=== PATIENT | male | born 1995 | race American Indian/Alaskan Native ===

== ENCOUNTER 2016-10-07 19:25 | Emergency (ER) | payer OTHER ==
[2016-10-07 21:16] VITALS: BP 130/80
[2016-10-07] MEDS ORDERED: TYLENOL PO ONE (21:16)
[2016-10-07] MEDS ORDERED: TORADOL IM ONE (23:01)
[2016-10-07] MEDS ORDERED: BICILLIN L-A IM ONE (23:01)
[2016-10-07] MEDS ORDERED: DECADRON IM ONE (23:07)
[2016-10-07] MEDS ORDERED: FLEXERIL PO ONE (23:07)
[2016-10-07] MEDS ORDERED: MOTRIN PO ONE (23:09)
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
== END 2016-10-08 01:10 | disposition home or self-care (01) ==
LOC: ED 19:25
DX: J02.0 Streptococcal pharyngitis (principal); V87.7XXA Person injured in collision between other specified motor vehicles (traffic), initial encounter; Y93.89 Activity, other specified; Y99.9 Unspecified external cause status; Y92.410 Unspecified street and highway as the place of occurrence of the external cause
CPT/HCPCS: 72040; 72100; 96372; 99283; J0561; J1100